=== PATIENT | female | born 1980 | race Caucasian/White ===

== ENCOUNTER 2017-10-16 18:54 | Emergency (ER) | payer OTHER ==
[~2017-10-16] VITALS: Ht 160 cm; Wt 56.7 kg
[2017-10-16] MEDS ORDERED: Bupropion Xl150 MG PO (19:30)
[2017-10-16] MEDS ORDERED: LEVSOD88 PO (19:31)
[2017-10-16] MEDS ORDERED: Robaxin750 MG PO (19:31)
[2017-10-16] MEDS ORDERED: SERT100 PO (19:31)
[2017-10-16] MEDS ORDERED: TRAZ50 PO (19:31)
[2017-10-16] MEDS ORDERED: ZYRTEC10 M1 PO (19:31)
[2017-10-16] MEDS ORDERED: TRI-LINYAH1 EACH PO (19:31)
[2017-10-16] MEDS ORDERED: IBUP600 PO (20:42)
[2017-10-16] MEDS ORDERED: Norco 5-325 Ta1 EACH PO (20:42)
[2017-10-16 21:12] LABS: Source, Urine Clean Catch
[2017-10-16 21:17] LABS: Bilirubin, Urine Neg (Neg); Blood, Urine Neg (Neg); Glucose Qualitative, Urine Neg (Neg); Ketones, Urine Neg (Neg); Leukocyte Esterase, Urine Neg (Neg); Nitrite, Urine Neg (Neg); Protein, Urine Neg (Neg); Urobilinogen, Urine NORM (Normal); pH, Urine 6.5 (5.0-8.0)
[2017-10-16 21:18] LABS: Appearance, Urine Clear (Clear); Color, Urine Pale Yellow (P-Yellow)
== END 2017-10-16 21:00 | disposition home or self-care (01) ==
LOC: ER 18:54
PROVIDERS: Emergency Medicine
DX: N83.202 Unspecified ovarian cyst, left side (principal); Z79.899 Other long term (current) drug therapy
CPT/HCPCS: 74019; 76830; 76856; 81000; 81003; 81025; 99284